=== PATIENT | female | born 1960 | race Caucasian/White ===

== ENCOUNTER 2020-01-17 11:31 | Emergency (ER) | payer OTHER, MEDICAID ==
[~2020-01-17] VITALS: Ht 157.5 cm; Wt 90.7 kg
[2020-01-17 11:31] VITALS: BP_SYST 166
--- NOTE | 2020-01-17 11:31 | NUR ---
Placed in room 4. Placed on registered nurse cardiac telemetry, blood pressure machine and pulse oximeter. To gown for exam. Side rails up. Report given to RANDY Loja.
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
--- NOTE | 2020-01-17 12:13 | NUR ---
ER Dr. Avelar at bedside examining patient.
--- NOTE | 2020-01-17 12:24 | NUR ---
X-ray at bedside.
[2020-01-17] MEDS ORDERED: traMADol HCL HCL 50 MG TABLET (ULTRAM) PO ONE (12:30)
[2020-01-17] MEDS ORDERED: traMADol HCL HCL 50 MG TABLET (ULTRAM) ONE (12:43)
[2020-01-17 14:30] VITALS: BP_SYST 148
--- NOTE | 2020-01-17 14:30 | NUR ---
Patient given written and verbal discharge instructions and verbalizes understanding. ER MD discussed with patient the results and treatment provided. Patient in stable condition. ID arm band removed. Rx of tramadol given. Patient educated on pain management and to follow up with PMD. Pain Scale 0/10. Opportunity for questions provided and answered. Medication side effect fact sheet provided.
== END 2020-01-17 14:30 | disposition home or self-care (01) ==
LOC: SED 11:31
DX: S20.219A Contusion of unspecified front wall of thorax, initial encounter (principal); E11.9 Type 2 diabetes mellitus without complications; I10 Essential (primary) hypertension; Z85.3 Personal history of malignant neoplasm of breast; V49.59XA Passenger injured in collision with other motor vehicles in traffic accident, initial encounter; Y93.89 Activity, other specified; Y92.488 Other paved roadways as the place of occurrence of the external cause; Y99.8 Other external cause status
CPT/HCPCS: 71045; 99283